=== PATIENT | male | born 1940 | race Caucasian/White ===

== ENCOUNTER → 2019-07-21 | Outpatient (CLI) | payer MEDICARE, OTHER ==
[~2019-07-21] MED LIST: ADULT LOW DOSE81 MG PO; AVELOX400 MG PO; CECLOR500 MG; CRESTOR10 MG PO; FLONASE 0.05%50 MCG NASAL; LISINOPRIL10 MG PO; LISINOPRIL5 MG; LOPRESSOR25 PO; MEDROL32 MG PO; MOBIC15 MG PO; MULTAQ400 MG PO; NITROSTAT0.4 MG SL; PANTOPRAZOLE SO40 M1 PO; PLAVIX 75 MG TA75 MG; PRADAXA150 MG PO; PRILOSEC 20 MG20 MG
--- NOTE | 2019-07-21 13:06 | CARDNUC ---
[place] [address] CARDIAC NUCLEAR IMAGING REPORT Name: CANDELARIO ESPINOSA Room: [facility]#: [id number] Admission: 07/21/19 Attend Phys: Renae Moody, Discharge: Date of : 44 Date of Service: 07/21/19 1305 Report #: [id number] THIS REPORT FOR: cc: Damien Baldwin John E. DO Liston, Michael J. MD [facility] ~ THIS REPORT FOR: //name// APPROVED REPORT Study performed: 07/21/2019 09:24:53 Exam: Nuclear Stress Test Indication: p a-fib Patient Location: Out-Patient Stress Tech: So Hanson Stress Nurse: Rianna Plummer RN NM Tech:TERI Marquez Ht: 6 ft 0 in Wt: 172 lbs BSA: 2.00 m2 BMI: 23.32 Medical History Medical History: cad, hyperlipidemia, hypertension Medications: asa-81, eliquis, lisinopril, ntg, rosuvastatin, dronedarone Allergies: iodine, sulfa Cardiac Risk Factors: age, hyperlipidemia, hypertension Exercise History: Physically active Stress Test Details Stress Test: Exercise stress testing was performed using a Per protocol. HR Resting HR: 61 bpm Max Heart Rate (APMHR): 143 bpm Max HR Achieved: 130 bpm Target HR (85% APMHR): 121 bpm % of APMHR: 90 Recovery HR: 68 bpm BP Resting BP: 141/75 mmHg Max BP: 217/80 [place] [address] CARDIAC NUCLEAR IMAGING REPORT Name: CANDELARIO ESPINOSA Room: [facility]#: [id number] Admission: 07/21/19 Attend Phys: Renae Moody, Discharge: Date of : 44 Date of Service: 07/21/19 1305 Report #: [id number] Resting ECG: Sinus Rhythm Stress ECG: Sinus Tachycardia ST Change: None Arrhythmia: VPC's Recovery ECG: Sinus Rhythm Recovery ST Change: None Recovery Arrhythmia: VPC Clinical Reason for Termination: Arrhythmias, Fatigue Exercise duration: 8 min 04 sec Exercise capacity: 10.16 METs Overall Exercise Capacity for Age: superior Functional Aerobic Impairment 91% The patient tolerated standard Per protocol exercise without significant cardiac symptoms. Stress ECG Conclusion The baseline 12-lead EKG shows sinus rhythm without significant ST segment or T-wave abnormality. EKGs obtained during and post exercise showed sinus rhythm and sinus tachycardia without significant ST segment or T-wave changes when compared to baseline. The patient exhibited frequent unifocal premature ventricular contractions with exercise and in recovery. NM EXAM: Myocardial Perfusion REST/STRESS Imaging Protocol: Rest Tc-99m/Stress Tc-99m 1 day Resting Data Rest SPECT myocardial perfusion imaging was performed in supine position 30 minutes following the intravenous injection of 11.8 mCi of Tc-99m Sestamibi. Time of rest injection: 0750 Date: 07/21/2019 The images were gated to evaluate regional wall motion and calculate left ventricular ejection fraction. Administration Route: IV Administration Site: Right Hand Exercise Stress At peak stress, the patient was injected intravenously with 35.2mCi of Tc-99m Sestamibi. Time of stress injection: 929 Date: 07/21/2019 Administration Route: IV Administration Site: Right Hand Gated Stress SPECT was performed 30 minutes [place] [address] CARDIAC NUCLEAR IMAGING REPORT Name: ESPINOSACANDELARIO Samaria Room: [facility]#: [id number] Admission: 07/21/19 Attend Phys: Renae Moody, Discharge: Date of : 44 Date of Service: 07/21/19 1305 Report #: [id number] The images were gated to evaluate regional wall motion and calculate left ventricular ejection fraction. Prone imaging was performed. Study Quality Study: Good Artifact: Mild Diaphragmatic artifact Study Data At rest, the left ventricular ejection fraction was 63%.. Post stress, the left ventricular ejection was 65%.. TID = 1.00. Perfusion Perfusion images obtained in the supine position at rest and post exercise stress show photopenia in the inferior wall that resolves partially with post stress prone imaging. Wall motion in this region appears normal on gated studies suggesting diaphragmatic attenuation artifact. No other significant fixed or reversible defects were identified. Wall Motion Normal left ventricular wall motion. Nuclear Conclusion ECG Findings: negative for ischemia Clinical Findings: negative for ischemia Nuclear Findings: negative for ischemia Exercise Capacity: normal Left Ventricular Function: normal Risk Study: low Perfusion images show no defect to suggest ischemia. Global LV systolic function is normal on gated studies. This is not a low risk study. <Conclusion> The baseline 12-lead EKG shows sinus rhythm without significant ST segment or T-wave abnormality. EKGs obtained during and post exercise showed sinus rhythm and sinus tachycardia without significant ST segment or T-wave changes when compared to baseline. The patient exhibited frequent unifocal premature ventricular contractions with exercise and in recovery. <ELECTRONICALLY SIGNED> By: Candelario Jimenez MD, FACC 07/21/19 1305 1305 1305 Candelario Jimenez MD, FACC /INF
== END ==
LOC: M.NUC 07-05 14:27
DX: I48.21 Permanent atrial fibrillation (principal); I25.10 Atherosclerotic heart disease of native coronary artery without angina pectoris; E78.5 Hyperlipidemia, unspecified; I10 Essential (primary) hypertension; Z79.899 Other long term (current) drug therapy

== ENCOUNTER → 2019-12-21 | Outpatient (CLI) | payer MEDICARE, OTHER ==
--- NOTE | 2019-12-26 19:39 | SLEEP ---
[address] [address] SLEEP STUDY REPORT Name: BOBBY ESPINOSA Room: [facility]#: [id number] Admission: 12/21/19 Attend Phys: NICOLLE Lazaro Discharge: Date of : 44 Report #: [id number] THIS REPORT FOR: //name// CC: TINO Hanna This study has been reviewed in its entirety by a board certified sleep specialist DATE OF SERVICE: 12/21/2019 SLEEP STUDY REFERRING PRACTITIONER: Jocelynn Le NP The patient is 79-year-old who weighs 160 pounds with a BMI of 21.7. The patient's [place] score was 6. The patient underwent split night study performed at [facility]. During the night study, the patient spent 399 minutes in bed and slept for 273 minutes with a low sleep efficiency of 68%. Sleep latency was 6.3 minutes with a REM latency of 78 minutes. Sleep architecture showed increased stage 1 and stage 2 sleep, normal slow wave sleep and reduced REM sleep, which was 7% of total sleep time. During the initial diagnostic portion of the study, the patient had 38 obstructive apneas, 28 mixed apneas and 16 central apneas and 32 hypopneas. The patient's AHI was 25.1 per hour with a REM AHI of 12.6 per hour and a supine AHI of 45 per hour. EKG monitoring revealed an average heart rate of 39.6 beats per minute with a maximum of 69 beats per minute. Occasional PVCs were observed. No sustained arrhythmias observed. PLMS were seen at an index of 60 per hour and 7.7 per hour caused EEG arousals. Nocturnal oximetry study revealed an average oxygen saturation of 95% with the lowest of 72%. Less than 2 minutes were spent with oxygen saturation of less than 89%. The patient met the criteria for CPAP initiation. It was started at 5 cm water and titrated up to 14 cm water. Due to persistent respiratory events and limited time, the patient was switched to BiPAP starting at and titrated up to . Limited sleep was seen at the final pressure of . However, at a BiPAP pressure of /, patient slept for 59 minutes. [place] [address] SLEEP STUDY REPORT Name: BOBBY ESPINOSA Room: [facility]#: [id number] Admission: 12/21/19 Attend Phys: NICOLLE Lazaro Discharge: Date of : 44 Report #: [id number] observed. The patient had 6 mixed apneas, 3 obstructive apneas. No central apneas and AHI was 9 per hour. Oxygen saturation remained above 93%. I would recommend the patient would benefit from auto BiPAP. IMPRESSION: 1. Moderate obstructive sleep apnea with worsening during supine sleep. Total AHI 25 per hour with a supine AHI of 45 per hour. 2. Nocturnal hypoxia secondary to obstructive sleep apnea, but resolved with positive pressure therapy. 3. Severe PLMS. 4. Reduced sleep efficiency resulting from sleep maintenance insomnia. 5. Abnormal EKG with sinus bradycardia. RECOMMENDATIONS: 1. Optimum CPAP/BiPAP pressure was not achieved during the split night study due to reduced sleep efficiency and combination of obstructive, mixed and central apneas. I would recommend that the patient should be placed on an auto BiPAP with a maximum IPAP pressure of 22 and a a minimum EPAP pressure of 16 with pressure support of 4. 2. The patient should have a download data in 30-60 days to make sure current BiPAP pressure is effective and AHI is less than 5 per hour. 3. If patient's insomnia is chronic, then it should be further evaluated and treated according to the etiology. 4. The patient's PLM should be further evaluated for any symptoms of restless legs during the day and if present, it can be treated with dopaminergic economist agents. 5. Caution regarding driving until symptoms of sleep apnea have resolved with BIPAP. 6. Avoid supine sleep. <ELECTRONICALLY SIGNED> By: Bin San MD 12/26/19 [id number] San MD /nt
== END ==
LOC: M.SLEEPLAB 19:57
PROVIDERS: ATTEND Registered Nurse
DX: G47.34 Idiopathic sleep related nonobstructive alveolar hypoventilation (principal); G47.33 Obstructive sleep apnea (adult) (pediatric); G47.61 Periodic limb movement disorder; G47.00 Insomnia, unspecified; R94.31 Abnormal electrocardiogram [ECG] [EKG]; R00.1 Bradycardia, unspecified

== ENCOUNTER → 2020-01-18 | Outpatient (CLI) | payer MEDICARE, OTHER ==
[2020-01-18 08:58] LABS: ABSOLUTE BASOPHILS 0.1 thou/uL (0.0-0.2); ABSOLUTE EOSINOPHILS 0.6 thou/uL (0.0-0.7); ABSOLUTE LYMPHOCYTES 3.1 thou/uL (0.8-5.3); ABSOLUTE MONOCYTES 0.8 thou/uL (0.0-1.2); ABSOLUTE NEUTROPHILS 3.8 thou/uL (1.6-8.1); BASOPHILS 0.8 %; EOSINOPHILS 6.8 %; HEMATOCRIT 40.6 % (42.0-52.0); HEMOGLOBIN 13.8 gm/dL (14.0-18.0); LYMPHOCYTES 37.4 %; MCH 31.7 pg (26.0-34.0); MCV 93.2 fL (80.0-100.0); MONOCYTES 9.2 %; MPV 8.2 fl. (7.2-11.1); NUCLEATED RBCS 0 /100WBC; PLATELET COUNT* 179 thou/uL (150-400); POLYS 45.8 %; RBC 4.36 mil/uL (4.50-6.00); RDW-CV 13.5 % (10.5-14.5); WBC 8.3 thou/uL (4.0-11.0)
[2020-01-18 09:13] LABS: ALBUMIN 3.5 g/dL (3.4-5.0); CALCIUM 8.4 mg/dL (8.5-10.1); CREATININE 1.1 mg/dL (0.6-1.3); MAGNESIUM 1.9 mg/dL (1.8-2.4); POTASSIUM 4.4 mmol/L (3.5-5.1); TOTAL BILIRUBIN 0.5 mg/dL (<0.1-1.0); TOTAL PROTEIN 6.6 g/dL (6.4-8.2)
== END ==
LOC: M.LAB 08:41
PROVIDERS: ATTEND Internal Medicine Critical Care Medicine
DX: J84.10 Pulmonary fibrosis, unspecified (principal); I48.0 Paroxysmal atrial fibrillation; R60.0 Localized edema

== ENCOUNTER → 2020-05-15 | Outpatient (CLI) | payer MEDICARE, OTHER | LOC: M.PUL 08:14 | PROVIDERS: ATTEND Internal Medicine Critical Care Medicine | DX: R06.02 Shortness of breath (principal) ==